=== PATIENT | male | born 1930 | race Caucasian/White ===

== ENCOUNTER 2017-09-24 09:50 | Outpatient (CLI) | payer OTHER ==
[~2017-09-24 09:50] MED LIST: ALTACE10 MG; AMARYL PO; ARICEPT10 MG; GLUCOPHAGE XR500 MG PO; LOPID PO; NORVASC5 MG; TRADJENTA5 MG; ZOCOR20 MG
== END 2017-09-24 10:30 | disposition home or self-care (01) ==
LOC: NUCLEAR 09:50
DX: I87.2 Venous insufficiency (chronic) (peripheral) (principal)

== ENCOUNTER 2017-09-25 08:23 | Outpatient (CLI) | payer OTHER | END 2017-09-25 10:00 | disposition home or self-care (01) | LOC: NUCLEAR 08:23 | DX: I87.2 Venous insufficiency (chronic) (peripheral) (principal); I73.9 Peripheral vascular disease, unspecified ==

== ENCOUNTER 2017-10-28 07:57 | Outpatient (CLI) | payer OTHER | END 2017-10-28 08:05 | disposition home or self-care (01) | LOC: NUCLEAR 07:57 | DX: I73.9 Peripheral vascular disease, unspecified (principal) ==